=== PATIENT | male | born 1995 | race Caucasian/White ===

== ENCOUNTER 2022-01-26 06:53 | Emergency (ER) | payer OTHER ==
[~2022-01-26] VITALS: Ht 167.6 cm; Wt 74.2 kg
[2022-01-26] MEDS ORDERED: NS 1,000 ML IV ONE ×2 (10:35→14:35)
[2022-01-26 11:32] LABS: BASO % 0.2 % (0.0-1.0); EOS % 0.4 % (0.0-3.0); HEMATOCRIT 42.8 % (42.0-52.0); HEMOGLOBIN 14.7 g/dl (13.5-17.5); LYMPH # 1.5 10^3/uL (1.5-5.0); LYMPH % 14.8 % (24.0-44.0); MEAN CORPUSCULAR HEMOGLOBIN 31.3 pg (27.0-33.0); MEAN CORPUSCULAR HGB CONC 34.3 g/dl (32.0-36.5); MEAN CORPUSCULAR VOLUME 91.3 fl (80.0-96.0); MONO # 0.8 10^3/uL (0.0-0.8); MONO % 7.5 % (2.0-8.0); NEUTROPHILS # 7.9 10^3/uL (1.5-8.5); NEUTROPHILS % 76.9 % (36.0-66.0); PLATELET COUNT, AUTOMATED 241 10^3/uL (150-450); RED BLOOD COUNT 4.69 10^6/uL (4.30-6.10); WHITE BLOOD COUNT 10.3 10^3/uL (4.0-10.0)
[2022-01-26 12:24] LABS: ALT/SGPT 18 U/L (7.0-40); BILIRUBIN,DIRECT 0.1 MG/DL (<0.4); BILIRUBIN,TOTAL 0.4 MG/DL (0.3-1.2); BLOOD UREA NITROGEN 15 MG/DL (9-23); CALCIUM LEVEL 9.6 MG/DL (8.5-10.1); CARBON DIOXIDE LEVEL 27 MMOL/L (20-31); CHLORIDE LEVEL 104 MMOL/L (98-107); CK-MB VALUE MASS < 1.0 NG/ML (<3.6); CPK CREATINE PHOSPHOKINASE 139 U/L (46-171); CREATININE FOR GFR 0.89 MG/DL (0.70-1.30); FREE T4 1.08 NG/DL (0.89-1.76); GLOMERULAR FILTRATION RATE > 60.0 (>60); GLUCOSE, FASTING 97 MG/DL (60-100); MB/CK RELATIVE INDEX 0.71 (< OR =4); POTASSIUM SERUM 4.3 MMOL/L (3.5-5.1); SODIUM LEVEL 139 MMOL/L (136-145); THYROID STIMULATING HORMONE 1.364 uIU/ML (0.55-4.78); TOTAL PROTEIN 6.7 G/DL (5.7-8.2)
[2022-01-26 13:05] LABS: CK-MB VALUE MASS < 1.0 NG/ML (<3.6); CPK CREATINE PHOSPHOKINASE 129 U/L (46-171); MB/CK RELATIVE INDEX 0.77 (< OR =4)
[2022-01-26 14:19] LABS: MONO REFLEX EBV COMP NEGATIVE (NEGATIVE)
[2022-01-26] MEDS ORDERED: ISOVUE-370 76% 100ML VIAL As Ordered ONE (14:52)
[2022-01-26 15:57] LABS: CK-MB VALUE MASS 1.1 NG/ML (<3.6); MB/CK RELATIVE INDEX 0.8 (< OR =4)
[2022-01-26] MEDS ORDERED: PROA1AER2 INH (16:53)
[2022-01-26] MEDS ORDERED: MEDR4PAK PO (16:53)
[2022-01-26 17:02] VITALS: BP 173/81
[2022-01-27 16:08] LABS: EBV VIRAL CAPSID AG IgM <36.0 U/mL (0.0-35.9)
== END 2022-01-26 17:03 | disposition home or self-care (01) ==
LOC: M ED 06:53
DX: J20.9 Acute bronchitis, unspecified (principal); J45.909 Unspecified asthma, uncomplicated; R04.2 Hemoptysis; J06.9 Acute upper respiratory infection, unspecified; F17.290 Nicotine dependence, other tobacco product, uncomplicated